=== PATIENT | male | born 1955 ===

== ENCOUNTER → 2022-05-21 | Outpatient (CLI) | payer OTHER | END | disposition home or self-care (01) | LOC: TOM 07:35 | PROVIDERS: ATTEND Internal Medicine Gastroenterology | DX: K56.601 Complete intestinal obstruction, unspecified as to cause (principal); K63.5 Polyp of colon ==

== ENCOUNTER 2023-01-23 07:09 | Outpatient (CLI) | payer OTHER | END 2023-01-23 07:21 | disposition home or self-care (01) | LOC: TOM 07:09 | PROVIDERS: ATTEND Otolaryngology Otology & Neurotology | DX: H93.13 Tinnitus, bilateral (principal) ==